=== PATIENT | female | born 1935 | race Caucasian/White ===

== ENCOUNTER 2016-10-16 18:04 | Emergency (ER) | payer MEDICARE ==
[2016-10-16 18:21] VITALS: BP 102/62
--- NOTE | 2016-10-16 18:47 | UC ---
Back Pain HPI - HPI Summary HPI Summary: The patient comes in today for: 1. Back pain: Onset: This morning. Palliative/provocative: Pain pills (Naproxen) taken today and this helped. Quality: Ache Region: Between the shoulder blades. Severity: 8/10 Time: Constant. Associated symptoms: Fevers: None. Osteoporosis history: Unknown. Previous disease: None. Previous treatment: None except the above naproxen. Numbness/weakness: None. Regular physician: "Hemanth" at [facility] in [place]. Cancer: None. Infections: NOne. Injury: none. * - History of Current Complaint Chief Complaint: UCBackPain Stated Complaint: BACK PAIN Time Seen by Provider: 10/16/16 18:30 Hx Obtained From: Patient Hx Last Menstrual Period: Years ago. ?: No - Allergies/Home Medications Allergies/Adverse Reactions: Allergies Allergy/AdvReac Type Severity Reaction Status Date / Time No Known Allergies Allergy Verified 10/16/16 18:15 Home Medications: Home Medications Naproxen TAB* [Naprosyn TAB*] 750 mg PO PRN 10/16/16 [History] PMH/Surg Hx/FS Hx/Imm Hx Previously Healthy: No - EDema, Endocrine History Of: Reports: Dyslipidemia Denies: Diabetes, Thyroid Disease, Hyperthyroidism, Hypothyroidism Cardiovascular History Of: Reports: Hypertension Denies: Cardiac Disorders, Pacemaker/ICD, Myocardial Infarction, Congestive Heart Failure, Atrial Fibrillation, Deep Vein Thrombosis, Bleeding Disorders Respiratory History Of: Denies: COPD, Asthma, Bronchitis, Pneumonia, Pulmonary Embolism GI/ History Of: Reports: Gastroesophageal Reflux Denies: Ulcer, Gastrointestinal Bleed, Gall Bladder Disease, Kidney Stones, Diverticulitis, Renal Disease, Urosepsis Neurological History Of: Denies: TIA, CVA, Dementia, Seizures, Migraine Psychological History Of: Reports: Depression Denies: Anxiety, Bipolar Disorder, Schizophrenia, Post Traumatic Stress Disorder Cancer History Of: Denies: Lung Cancer, Colorectal Cancer, Breast Cancer, Prostate Cancer, Cervical Cancer Other History Of: Anticoagulant Therapy - Aspirin daily. Negative For: HIV, Hepatitis B, Hepatitis C - Surgical History Surgical History: Yes Surgery Procedure, Year, and Place: [place], adnoids and tonsils, hysterectomy - Family History Known Family History: Positive: Hypertension Negative: Cardiac Disease, Diabetes - Social History Occupation: Retired Alcohol Use: None Substance Use Type: None Smoking Status (MU): Never Smoked Tobacco Review of Systems Constitutional: Negative Skin: Negative Eyes: Negative ENT: Negative Respiratory: Negative Cardiovascular: Negative Gastrointestinal: Negative Genitourinary: Negative Musculoskeletal: Arthralgia, Myalgia All Other Systems Reviewed And Are Negative: Yes Physical Exam Triage Information Reviewed: Yes Appearance: Well-Appearing, No Pain Distress, Well-Nourished Vital Signs: Initial Vital Signs Temp 99.2 F 10/16/16 18:15 Pulse 77 10/16/16 18:15 Resp 16 10/16/16 18:15 BP 102/62 10/16/16 18:15 Pulse Ox 97 10/16/16 18:15 Vital Signs Reviewed: Yes Eyes: Positive: Conjunctiva Clear. Negative: Discharge ENT: Positive: Hearing grossly normal. Negative: Pharyngeal erythema, Nasal congestion, Nasal drainage, TM bulging, TM dull, TM red, Tonsillar swelling, Tonsillar exudate Dental: Negative: Gross Decay/Caries @, Dental Fracture @ Neck: Positive: Supple, Nontender, No Lymphadenopathy. Negative: Nuchal Rigidity Respiratory: Positive: Lungs clear, No respiratory distress, Respiratory distress. Negative: Crackles, Wheezing Cardiovascular: Positive: RRR, No Murmur Abdomen Description: Positive: Nontender, No Organomegaly, Soft. Negative: Distended, Guarding Musculoskeletal: Positive: Strength Intact, ROM Intact, Other: - She had tenderness to palpation of the upper back--not near the shoulder musculature-- more along the spine. No masses. Neurological: Positive: Alert, Muscle Tone Normal Psychological: Positive: Age Appropriate Behavior, Consolable Skin: Negative: rashes, breakdown Diagnostics - Laboratory Diagnostic Studies Completed/Ordered: Osteoporosis, but no compression fracture. - Radiology No standard instances Xray Interpretation: No Acute Changes Radiology Interpretation Completed By: Radiologist Back Pain Course/Dx - Course Course Of Treatment: Daughter and patient were told of the negative radiographic findings (except for osteoporosis--no acute problems such as compression fracture). Treatment options were explained. All greed to use hydrocodone/acetaminophen as needed when plain Tylenol does not help. Patient and daughter were told how the hydrocodone may make her more likely to fall and precautions are needed. - Differential Dx/Diagnosis Provider Diagnoses: Upper back pain. Discharge - Discharge Plan Condition: Stable Disposition: HOME Patient Education Materials: Back Pain (ED) Referrals: RUPERT Wallis [Primary Care Provider] - 1 Week (Please see your primary care provider in a week to see how well you are doing. If you get worse, please be seen sooner.)
[2016-10-16] MEDS ORDERED: HYDROcodone/ACETAMIN 5-325 MG* 1 TAB PO ONE (19:07)
--- NOTE | 2016-10-16 19:21 | RAD ---
Indication: Back pain. 2 views of lumbar spine demonstrates osteopenia. Disc space narrowing with facet arthropathy is noted at L4-L5 and L5-S1. Disc spaces all well-preserved. IMPRESSION: Osteopenia without compression fracture.
== END 2016-10-16 19:50 | disposition home or self-care (01) ==
LOC: UCCORT 18:04
DX: M54.6 Pain in thoracic spine (principal); M85.88 Other specified disorders of bone density and structure, other site
CPT/HCPCS: 72080; 99212; G0463